=== PATIENT | female | born 1945 | race Caucasian/White ===

== ENCOUNTER 2020-10-26 00:55 | Day surgery (SDC) | payer MEDICARE, SELFPAY ==
[2020-10-18 14:50] VITALS: BMI 34.0
--- NOTE | 2020-10-25 16:44 | PM.HPGS ---
History of Present Illness History of Present Illness Consent: Risks, benefits, and alternatives have been discussed and questions answered. Patient agrees to proceed with procedure. Chief complaint: hx of colon polyps Narrative: Fallon Jorgensen is a 74 year old female here for colon cancer screening. She has had polyps removed in the past. Her last colonoscopy was at least 5 years ago. Review of Systems Review of Systems: All systems reviewed & are unremarkable except as noted in HPI and below PMFSH Past Medical History Medical History History of liver disease Obesity Surgical History Surgical History History of liver transplant Social History Social History Smoking packs per day: 1 Smoking cigarettes per day: 20.0 Years smoked: 40 Smoking pack-years: 40.00 Smoking status: Former smoker Tobacco type: cigarettes Alcohol intake: current Drinks per week: 2 Substance use: never Substance use type: does not use Living arrangements: with family Spiritual care concerns: No Meds Home Medications and Allergies Home Medications Medication Instructions Recorded Confirmed Type amlodipine 5 mg PO DAILY 10/18/20 10/18/20 History aspirin [Adult Low Dose Aspirin] 81 mg PO DAILY 10/18/20 10/18/20 History clopidogrel 75 mg PO DAILY 10/18/20 10/18/20 History lorazepam 0.5 mg PO TID PRN 10/18/20 10/18/20 History metoprolol succinate 50 mg PO DAILY 10/18/20 10/18/20 History omega-3 fatty acids-vitamin E 1 cap PO DAILY 10/18/20 10/18/20 History [Fish Oil] pediatric multivitamin [Children's 1 tablet PO DAILY 10/18/20 10/18/20 History Chewable] pravastatin 40 mg PO DAILY 10/18/20 10/18/20 History tacrolimus 0.5 mg PO HS 10/18/20 10/18/20 History tacrolimus 1 mg PO QAM 10/18/20 10/18/20 History Allergies Allergy/AdvReac Type Severity Reaction Status Date / Time Contrast Media Allergy Severe Itching Uncoded 10/26/20 10:42 Exam Resp: Auscultation: clear to auscultation bilaterally Cardio: Rate: regular rate Rhythm: regular rhythm GI: GI Palp: Yes Soft to palpation and No Tenderness to palpation present (GI) Assessment and Plan Assessment and plan (1) Colon cancer screening: Code(s): Z12.11 - Encounter for screening for malignant neoplasm of colon Status: Acute Assessment and Plan: Colonoscopy with possible biopsy or polypectomy or cautery or injection of substances.
[2020-10-26 10:46] VITALS: BP 185/66; PULSE 81; RESP 18; TEMP 36.4; O2SAT 97; BMI 33.7
[2020-10-26] MEDS: LACTATED RINGERS 1,000 ML 150 ML IV CONT (10:59)
--- NOTE | 2020-10-26 11:03 | WPDANESEPPF ---
Anes - Initial Pre Proc Eval Procedure: Operation Date: 10/26/20 11:30 Proposed Procedures p Screening Colonoscopy - José Manzo MD Date/Time: 10/26/20 11:03 Surgeon: José Manzo MD Pre Op Diagnosis: hx of colon polyps Patient Data Age: 74 Gender: F Height: 1.63 m Weight: 89.2 kg Last Vital Signs Temp 36.4 C L 10/26/20 10:46 Resp 18 10/26/20 10:46 BP 185/66 H 10/26/20 10:46 Pulse Ox 97 10/26/20 10:46 Allergies Allergy/AdvReac Type Severity Reaction Status Date / Time Contrast Media Allergy Severe Itching Uncoded 10/26/20 10:42 Home Medications Medication Instructions Recorded Confirmed Type amlodipine 5 mg PO DAILY 10/18/20 10/18/20 History aspirin [Adult Low Dose Aspirin] 81 mg PO DAILY 10/18/20 10/18/20 History clopidogrel 75 mg PO DAILY 10/18/20 10/18/20 History lorazepam 0.5 mg PO TID PRN 10/18/20 10/18/20 History metoprolol succinate 50 mg PO DAILY 10/18/20 10/18/20 History omega-3 fatty acids-vitamin E 1 cap PO DAILY 10/18/20 10/18/20 History [Fish Oil] pediatric multivitamin [Children's 1 tablet PO DAILY 10/18/20 10/18/20 History Chewable] pravastatin 40 mg PO DAILY 10/18/20 10/18/20 History tacrolimus 0.5 mg PO HS 10/18/20 10/18/20 History tacrolimus 1 mg PO QAM 10/18/20 10/18/20 History Patient hx anesthesia problems: none Family hx anesthesia problems: none PMF Past Medical History Medical History (Updated 10/26/20 @ 11:08 by Cirilo Pickens MD) History of liver disease Obesity Surgical History Surgical History (Updated 10/26/20 @ 11:09 by Cirilo Pickens MD) History of liver transplant Social History Social History Smoking packs per day: 1 Smoking cigarettes per day: 20.0 Years smoked: 40 Smoking pack-years: 40.00 Smoking status: Former smoker Tobacco type: cigarettes Alcohol intake: current Drinks per week: 2 Substance use: never Substance use type: does not use Living arrangements: with family Spiritual care concerns: No Anes - Eval Final PreProcedure Day of Procedure 10/26/20 11:03 Patient weight: obese Heart: regular rate and rhythm Lungs: clear to auscultation Airway: Mallampati scale class II Neurological: alert and oriented Last oral intake: >/= 8 hours ASA classification: III Anesthetic plan: proceed Anesthesia type and monitoring: general GIVS and standard monitoring Informed Consent: The patient's anesthetic plan and its attendant risks and benefits were discussed with the patient/family/POA. Questions were solicited and answers provided to the satisfaction of the patient/family/POA.
[2020-10-26 11:37] VITALS: BP 132/54; PULSE 69; RESP 19; O2SAT 99
--- NOTE | 2020-10-26 11:40 | SUR.OPER ---
RECTAL POLYPECTOMY X2 WITH BIOPSY FORCEP. ONE POLYP UNRETRIEVED, DR. NICHOLE MADE AWARE BY Jose E APARICIO RN AND Venkatesh WALDRON. 10/26/20 [id number]
[2020-10-26 11:47] VITALS: BP 133/55; PULSE 66; RESP 17; O2SAT 99
[2020-10-26 11:57] VITALS: BP 158/69; PULSE 73; RESP 22; O2SAT 100
== END 2020-10-26 12:10 | disposition home or self-care (01) ==
PROVIDERS: PCP Internal Medicine; Visit Provider Internal Medicine Gastroenterology
PROC: 0DJD8ZZ Inspection of Lower Intestinal Tract, Via Natural or Artificial Opening Endoscopic (ICD-10-PCS; CPT 45378; principal; 2020-10-26 11:30)
DX: Z12.11 Encounter for screening for malignant neoplasm of colon (principal); K62.1 Rectal polyp; K57.30 Diverticulosis of large intestine without perforation or abscess without bleeding; Z79.02 Long term (current) use of antithrombotics/antiplatelets; Z79.82 Long term (current) use of aspirin; E66.9 Obesity, unspecified; Z68.33 Body mass index [BMI] 33.0-33.9, adult; Z87.891 Personal history of nicotine dependence
CPT/HCPCS: 45380; 88305; J2704; J7120

== ENCOUNTER → 2020-11-07 13:37 | Outpatient (CLI) | payer MEDICARE, SELFPAY ==
--- NOTE | ~2020-11-07 | MM_ITS ---
EXAMINATION: MM screening kiki BI w michael HISTORY: Screening mammogram TECHNIQUE: Craniocaudal and mediolateral oblique 3-D tomosynthesis images were obtained and synthetic 2-D images were generated. CAD analysis was submitted and interpreted. COMPARISON: No prior mammogram is available for comparison at this institution. BREAST PARENCHYMAL COMPOSITION: The breasts are almost entirely fatty. FINDINGS: Status post reportedly benign right stereotactic biopsy 15-20 years ago, with biopsy marker in the lower mid right breast. Occasional benign calcifications primarily on the right. There is no evidence of suspicious mass, calcification, or architectural distortion to suggest malignancy in eith er breast. IMPRESSION: 1. No mammographic evidence of malignancy. 2. Recommend routine screening mammography in one year. BI-RADS Category 2: Benign finding(s). Reviewed, dictated and finalized at location A.
== END ==
PROVIDERS: PCP Internal Medicine; Visit Provider Internal Medicine
DX: Z12.31 Encounter for screening mammogram for malignant neoplasm of breast (principal)
CPT/HCPCS: 77063; 77067

== ENCOUNTER → 2022-08-08 12:09 | Outpatient (CLI) | payer MEDICARE, SELFPAY ==
--- NOTE | ~2022-08-08 | DEXA_ITS ---
Bone Density Report Name: TRISTON MEEHAN Age: 76 Sex: Female Ethnicity: White Date of : 1945 Indication: postmenopausal; screening for osteoporosis; height loss; prior fracture; Referring Provider: JEANINE, VENICE Acosta Study: Bone densitometry was performed. Exam Date: August 08, 2022 Accession number: [id number] Bone Density: Region BMD T-score Z-score Classification AP Spine (L1-L4) 1.039 -0.1 2.3 Normal Femoral Neck (Left) 0.712 -1.2 0.8 Osteopenia Total Hip (Left) 0.919 -0.2 1.6 Normal Femoral Neck (Right) 0.684 -1.5 0.6 Osteopenia Total Hip (Right) 0.862 -0.7 1.1 Normal Total Hip Mean 0.891 -0.5 1.4 Normal World Health Organization criteria for BMD impression classify patients as: Normal (T-score at or above -1.0), Osteopenia (T-score between -1.0 and -2.5), or Osteoporosis (T-score at or below -2.5). 10-year Fracture Risk(1): Major Osteoporotic Fracture 15% Hip Fracture 2.5% Reported Risk Factors: [place] (), Neck BMD=0.684, BMI=37.3, previous fracture (1) FRAX(R) Version 3.08. Fracture probability calculated for an untreated patient. Fracture probability may be lower if the patient has received treatment. Clinical Information Provided by Patient: Has had a low trauma fracture Patient maximum height was 64 Menopause Age: 45 No regular weight bearing exercise Drinks caffeinated beverages Onset of menses at age 14 Number of children 1 Impression: The patient has low bone mass, based on the Right Femoral Neck T-score. The patient has an estimated ten-year risk of hip fracture of 2.5% and an estimated ten-year risk of major fracture of 15%, based on the WHO FRAX algorithm. The patient has risk factors, including: previous fracture. Discussion: BONE DENSITY IS LOW AT ONE OR MORE SKELETAL SITES. This patient's lowest T-score is low at one or more skeletal sites. It meets the World Health Organization's (WHO) criteria for ?low bone mass? (T-score between -1.0 and -2.5). The patient's 10-year risk of fracture as calculated by FRAX is less than the threshold where pharmacological therapy is recommended by the National Osteoporosis Foundation (NOF). However, all treatment decisions require clinical judgment and consideration of individual patient factors, including patient preferences, comorbidities, previous drug use, risk factors not captured in the FRAX model (e.g., frailty, falls, vitamin D deficiency, increased bone turnover, interval significant decline in bone density) and possible under or overestimation of fracture risk by FRAX. The patient should follow a healthful lifestyle (good nutrition with adequate calcium and vitamin D, and appropriate weight-bearing exercise). Follow-Up: Consider repeating this study in 2 to 3 years to reassess this patient's status, or soon
== END ==
PROVIDERS: PCP Internal Medicine; Visit Provider Internal Medicine
DX: M81.0 Age-related osteoporosis without current pathological fracture (principal); M85.852 Other specified disorders of bone density and structure, left thigh; M85.851 Other specified disorders of bone density and structure, right thigh
CPT/HCPCS: 77080